=== PATIENT | male | born 1990 | race Asian ===

== ENCOUNTER 2019-06-10 20:34 | Emergency (ER) | payer BC, MEDICAID, OTHER ==
[~2019-06-10] VITALS: Ht 177.8 cm; Wt 77.1 kg
--- NOTE | 2019-06-10 20:50 | NUR ---
PATIENT CAME TO ER BED 9 C/O FOREHEAD NUMBNESS FOR PAST FEW DAYS. PATIENT STATES THAT HE HAD TESTED NEGATIVE FOR THE COVID TEST ABOUT A MONTH AGO. PATIENT ALSO C/O LEFT ARM TINGLING. AAOX4. C/O SOB. 100% ON ROOM AIR. BREATHING EVENLY AND UNLABORED. CONNECTED TO MONITOR.
[2019-06-10 21:24] VITALS: BP 139/87
== END 2019-06-10 22:01 | disposition home or self-care (01) ==
LOC: ER 20:35
DX: R20.2 Paresthesia of skin (principal); I10 Essential (primary) hypertension